=== PATIENT | male | born 1955 | race Caucasian/White ===

== ENCOUNTER 2019-04-07 09:14 | Emergency (ER) | payer OTHER, MEDICARE ==
[~2019-04-07] VITALS: Ht 172.7 cm; Wt 90.7 kg
[~2019-04-07 09:14] MED LIST: ALBU90OI6 INH; HYDACE10B PO; LIDO5TP TOP; METO50 PO; METO50ER PO; OXYC5 PO; PROM25 PO; RANI150 PO; [UNRECOGNIZED DRUG - OTHER] PO
[2019-04-07] MEDS ORDERED: OXYC10TA19 (09:42)
[2019-04-07] MEDS ORDERED: Fentanyl1 EAC4 TOP (09:42)
== END 2019-04-07 10:19 | disposition home or self-care (01) ==
LOC: ER 09:14
DX: M54.5 Low back pain (principal); G89.29 Other chronic pain; I10 Essential (primary) hypertension; Z88.0 Allergy status to penicillin; Z88.6 Allergy status to analgesic agent; Z79.899 Other long term (current) drug therapy; J45.909 Unspecified asthma, uncomplicated
CPT/HCPCS: 99282